=== PATIENT | male | born 1975 | race Caucasian/White ===

== ENCOUNTER 2018-08-07 09:58 | Emergency (ER) | payer MEDICAID ==
[~2018-08-07] VITALS: Ht 172.7 cm; Wt 105.2 kg
[2018-08-07 10:09] VITALS: BP 147/94; Ht 172.7 cm; Wt 105.2 kg
== END 2018-08-07 12:10 | disposition home or self-care (01) ==
LOC: ED 09:58
DX: J11.1 Influenza due to unidentified influenza virus with other respiratory manifestations (principal); Z88.0 Allergy status to penicillin; Z98.890 Other specified postprocedural states

== ENCOUNTER 2018-08-12 16:35 | Emergency (ER) | payer MEDICAID ==
[~2018-08-12] VITALS: Ht 172.7 cm; Wt 102.7 kg
[2018-08-12 17:11] VITALS: Ht 172.7 cm; Wt 102.7 kg
[2018-08-12 18:29] LABS: BASOPHIL % 0.3 % (0-2); PLATELET COUNT 262 x10^3mcL (130-400); RED CELL DISTRIBUTION WIDTH 12.9 % (11.5-14.5)
[2018-08-12 18:47] LABS: CALCIUM 8.5 mg/dL (8.5-10.1); CARBON DIOXIDE 26.3 mmol/L (21-32); CREATININE SERUM 1.4 mg/dL (0.7-1.3); POTASSIUM SERUM 3.8 mmol/L (3.5-5.1)
[2018-08-12 18:55] LABS: T3 TOTAL 1.1 ng/mL
[2018-08-12 18:59] LABS: ALBUMIN 3.4 g/dL (3.4-5.0); BILIRUBIN TOTAL 0.5 mg/dL (0.20-1.00); CHOLESTEROL/HDL RATIO 4.8; TOTAL PROTEIN, SERUM 7.5 g/dL (6.4-8.2)
[2018-08-12 19:01] LABS: FREE T4 1.27 ng/dL (0.76-1.46); FREE THYROXINE INDEX 2.5 ug/dL (1.4-4.5); T4(THYROXINE) 6.5 ug/dL (4.7-13.3)
[2018-08-12 20:26] VITALS: BP 153/98
== END 2018-08-12 20:26 | disposition home or self-care (01) ==
LOC: ED 16:35
PROVIDERS: Specialist
DX: R10.13 Epigastric pain (principal); R10.12 Left upper quadrant pain; R50.9 Fever, unspecified; Z88.0 Allergy status to penicillin; Z98.890 Other specified postprocedural states
CPT/HCPCS: 83880; 84439; J7030; Q0092